=== PATIENT | male | born 1995 | race Caucasian/White ===

== ENCOUNTER 2018-05-06 13:43 | Inpatient (IN) | payer BC ==
[~2018-05-06] VITALS: Ht 180.3 cm; Wt 67.0 kg
[~2018-05-06 13:43] MED LIST: IBUP-1542 PO; OXYC-281 PO
[2018-05-06] MEDS ORDERED: ONDANSETRON (ODT) 4 MG TAB ODT STA (15:40)
[2018-05-06] MEDS ORDERED: HYDROCODONE/APAP (5/325) TAB PO ONE (16:00)
[2018-05-06] MEDS ORDERED: KETOROLAC 30 MG INJ IV STA (17:23)
[2018-05-06] MEDS ORDERED: SOD CHLORIDE 0.9% 1,000 ML IV ONE (17:30)
[2018-05-06] MEDS ORDERED: ONDANSETRON 4 MG INJ IV STA (18:21)
[2018-05-06] MEDS ORDERED: morphine 4 MG/ML VIAL IV STA (18:21)
--- NOTE | 2018-05-06 18:34 | ERD ---
ER Documentation Chief Complaint Chief Complaint Complains of severe back pain since this am HPI 22-year-old female patient with a past medical history of appendicitis, 2 years ago presents the ED complaining of left lower back pain that started this morning with some dysuria. Patient reports that he has not seen any hematuria. That he is nauseous, had a few episodes of nonbilious nonbloody vomiting. Reports that the pain radiates to the left lower abdomen. Denies any chest pain or shortness of breath, diarrhea, neck stiffness, fever, chills. ROS All systems reviewed and are negative except as per history of present illness. Medications Home Meds Active Scripts Tamsulosin Hcl* (Flomax*) 0.4 Mg Cap.er.24h, 0.4 MG PO QPM, #30 CAP Prov:BHARGAV RAVI MD 05/11/18 Ibuprofen* (Motrin*) 600 Mg Tab, 600 MG PO Q6, #20 TAB Prov:BHARGAV RAVI MD 05/11/18 Hydrocodone/Acetaminophen ([place] 5-325 Tablet) 1 Each Tablet, 1 TAB PO Q6H PRN for PAIN, #12 TAB Prov:BHARGAV RAVI MD 05/11/18 Tamsulosin Hcl* (Flomax*) 0.4 Mg Cap.er.24h, 0.4 MG PO DAILY for 5 Days, #5 CAP Prov:SONU REEVES M. 05/08/18 Docusate Sodium* (Colace*) 100 Mg Capsule, 100 MG PO BID, #10 CAP Prov:SONU REEVES M. 05/08/18 Lactobacillus Acidophilus* (Lactinex*) 1 Tab Chew, 1 TAB PO BID, #10 TAB Prov:LEANDROZAINAB MoraO M. 05/08/18 Levofloxacin* (Levaquin*) 500 Mg Tablet, 500 MG PO DAILY for 5 Days, #5 TAB Prov:SONU REEVES M. 05/08/18 Discontinued Scripts Oxycodone Hcl-Acetaminophen* (Percocet*) 5-325 Mg Tablet, 1 TAB PO Q4H PRN for S EVERE PAIN LEVEL 7-10, #8 TAB Prov:TIFFANI RODRIGUEZ MD 10/04/15 Ibuprofen* (Ibuprofen*) 600 Mg Tablet, 600 MG PO Q6 PRN for PAIN, #20 TAB Prov:TIFFANI RODRIGUEZ MD 10/04/15 Allergies Allergies: Coded Allergies: No Known Allergy (Unverified , 10/03/15) PMhx/Soc History of Surgery: No Anesthesia Reaction: No Hx Neurological Disorder: No Hx Respiratory Disorders: No Hx Cardiac Disorders: No Hx Psychiatric Problems: No Hx Miscellaneous Medical Probl: No Hx Alcohol Use: No Hx Substance Use: Yes (marijuana use ) Hx Tobacco Use: No FmHx Family History: No diabetes, No coronary disease Physical Exam Vitals Temp 97.1 Pulse 70 Resp 20 SBP 152 DBP 88 Pulse Ox 100 Physical Exam Const: Mgc-ujy-fzwgsvaup, well-nourished. In no acute distress. Head: Atraumatic, normocephalic Eyes: Normal Conjunctiva without injection. No purulent discharge. ENT: Normal external ear, nose. Moist oropharynx without tonsillar exudates. Non-erythematous pharynx. Uvula midline. No drooling. No trismus. Neck: No cervical midline tenderness. Full range of motion. No meningismus. No cervical lymphadenopathy. No JVD. Resp: Clear to auscultation bilaterally. No wheezing, rhonchi, rales, or crackles. No accessory muscle use. No retractions. Cardio: Regular rate and rhythm. No murmurs, rubs or gallops. Abd: Soft, slight left lower quadrant tenderness, non distended. Normal bowel sounds. No palpable masses. No rebound tenderness. No guarding. Negative McBurney's point. Negative psoas sign. Negative obturator sign. Skin: No petechiae or rashes Back: No midline tenderness. No CVA tenderness. Ext: No cyanosis, or edema. Neur: Awake and alert. Normal gait. Normal coordination. Psych: Normal Mood and Affect Results 24 hrs Laboratory Tests Test 05/06/18 15:53 05/06/18 15:58 Urine Color YELLOW Urine Clarity CLEAR Urine pH 7.0 Urine Specific [place] 1.020 Urine Ketones 2+ mg/dL Urine Nitrite NEGATIVE mg/dL Urine Bilirubin NEGATIVE mg/dL Urine Urobilinogen 1+ mg/dL Urine Leukocyte Esterase NEGATIVE Sav/ul Urine Microscopic RBC 147 /HPF Urine Microscopic WBC 5 /HPF Urine Mucus FEW /HPF Urine Hemoglobin 2+ mg/dL Urine Glucose NEGATIVE mg/dL Urine Total Protein NEGATIVE mg/dl White Blood Count 17.1 10^3/ul Red Blood Count 4.94 10^6/ul Hemoglobin 15.0 g/dl Hematocrit 44.3 % Mean Corpuscular Volume 89.7 fl Mean Corpuscular Hemoglobin 30.4 pg Mean Corpuscular Hemoglobin Concent 33.9 g/dl Red Cell Distribution Width 12.7 % Platelet Count 268 10^3/UL Mean Platelet Volume 10.6 fl Immature Granulocytes % 0.500 % Neutrophils % 89.6 % Lymphocytes % 3.3 % Monocytes % 6.3 % Eosinophils % 0.0 % Basophils % 0.3 % Nucleated Red Blood Cells % 0.0 /100WBC Immature Granulocytes # 0.090 10^3/ul Neutrophils # 15.3 10^3/ul Lymphocytes # 0.6 10^3/ul Monocytes # 1.1 10^3/ul Eosinophils # 0.0 10^3/ul Basophils # 0.1 10^3/ul Nucleated Red Blood Cells # 0.0 10^3/ul Sodium Level 141 mmol/L Potassium Level 4.8 mmol/L Chloride Level 102 mmol/L Carbon Dioxide Level 26 mmol/L Anion Gap 13 Blood Urea Nitrogen 15 mg/dl Creatinine 1.49 mg/dl Est Glomerular Filtrat Rate mL/min > 60 mL/min Glucose Level 126 mg/dl Calcium Level 10.5 mg/dl Total Bilirubin 0.3 mg/dl Direct Bilirubin 0.00 mg/dl Indirect Bilirubin 0.3 mg/dl Aspartate Amino Transf (AST/SGOT) 23 IU/L Alanine Aminotransferase (ALT/SGPT) 15 IU/L Alkaline Phosphatase 72 IU/L Total Protein 8.3 g/dl Albumin 5.2 g/dl Globulin 3.10 g/dl Albumin/Globulin Ratio 1.67 Lipase 25 U/L Current Medications Medications Dose Sig/Augusto Start Time Status Last (Trade) Ordered Route PRN Stop Time Admin Dose Reason Admin 1 tab ONCE ONCE 05/06/18 DC 05/06/18 Acetaminophen PO 16:00 15:53 / 05/06/18 16:01 Hydrocodone Bitart ([place] (5/325)) Ondansetron 4 mg ONCE STAT 05/06/18 DC 05/06/18 HCl (Zofran ODT 15:40 15:54 Odt) 05/06/18 15:45 Ketorolac 30 mg ONCE STAT 05/06/18 DC 05/06/18 Tromethamine IV 17:23 17:35 (Toradol) 05/06/18 17:24 Sodium 1,000 ml @ Q1H ONCE 05/06/18 DC 05/06/18 Chloride 1,000 mls/hr IV 17:30 17:35 05/06/18 18:29 Morphine 4 mg ONCE STAT 05/06/18 DC 05/06/18 Sulfate IV 18:21 18:39 (morphine) 05/06/18 18:22 Ondansetron 4 mg ONCE STAT 05/06/18 DC 05/06/18 HCl (Zofran IV 18:21 18:39 Inj) 05/06/18 18:22 Procedures/MDM 22-year-old male patient with no significant past medical history presents to the ED complaining of left lower quadrant abdominal pain and left lower back pa in. Patient is afebrile and nontoxic-appearing. Patient was further worked up with CBC, CMP, lipase, UA, CTthe abdomen and pelvis without contrast. Patient was given 30 mg IV Toradol, [place] 5-325 mg. Pending pain control with morphine 4 mg IV, this patient has been signed out to my rising physician, Dr. Welsh for further evaluation and treatment and decision of admission. Dr. Welsh spoke with Dr. Adams who agreed with the admission plan who spoke speak with hospitalist and urologist for admission plan. IMPRESSION: 1. 6 mm distal left renal calculus, adjacent to the left ureterovesicular junction, resulting in mild to moderate left-sided hydroureteronephrosis. 2. Small nonobstructive right sided intrarenal calculi measuring up to 4 mm in diameter. CBC: No leukocytosis. No e/o of systemic infection. No e/o anemia. CMP: No e/o severe acidosis, alkalosis, renal failure, diabetic ketoacidosis, liver disease Lipase within normal limits. Urine: No leukocyte esterase, no nitrites, no hematuria. Patient has a 6 mm nephrolithiasis of the left urethral vesicular junction with some mild to moderate left-sided hydroureteronephrosis. Low suspicion for septic renal stone, testicular torsion, gastritis, GERD, peptic ulcer disease, cholecystitis, choledocholithiasis, cholangitis, pancreatitis, appendicitis, bowel obstruction, ileus, volvulus, pyelonephritis, hepatitis, perforated viscus, diverticulitis, abdominal hernia, acute abdomen, mesenteric ischemia or other emergent conditions. Departure Diagnosis: Primary Impression: Nephrolithiasis Condition: Stable Referrals: [facility] YOU HAVE RECEIVED A MEDICAL SCREENING EXAM AND THE RESULTS INDICATE THAT YOU DO NOT HAVE A CONDITION THAT REQUIRES URGENT TREATMENT IN THE EMERGENCY DEPARTMENT. FURTHER EVALUATION AND TREATMENT OF YOUR CONDITION CAN WAIT UNTIL YOU ARE SEEN IN YOUR DOCTORS OFFICE WITHIN THE NEXT 1-2 DAYS. IT IS YOUR RESPONSIBILITY TO MAKE AN APPOINTMENT FOR FOLOW-UP CARE. IF YOU HAVE A PRIMARY DOCTOR --you should call your primary doctor and schedule an appointment IF YOU DO NOT HAVE A PRIMARY DOCTOR YOU CAN CALL OUR PHYSICIAN REFERRAL HOTLINE AT IF YOU CAN NOT AFFORD TO SEE A PHYSICIAN YOU CAN CHOSE FROM THE FOLLOWING [facility][1] [id number] [facility]. [facility] [address] [facility] [address] [facility] [address] [facility] [facility] [address] [facility]. [facility] [address] [facility]. [facility] YOU HAVE RECEIVED A MEDICAL SCREENING EXAM AND THE RESULTS INDICATE THAT YOU DO NOT HAVE A CONDITION THAT REQUIRES URGENT TREATMENT IN THE EMERGENCY DEPARTMENT. FURTHER EVALUATION AND TREATMENT OF YOUR CONDITION CAN WAIT UNTIL YOU ARE SEEN IN YOUR DOCTORS OFFICE WITHIN THE NEXT 1-2 DAYS. IT IS YOUR RESPONSIBILITY TO MAKE AN APPOINTMENT FOR FOLOW-UP CARE. IF YOU HAVE A PRIMARY DOCTOR --you should call your primary doctor and schedule and appointment IF YOU DO NOT HAVE A PRIMARY DOCTOR YOU CAN CALL OUR PHYSICIAN REFERRAL HOTLINE AT . IF YOU CAN NOT AFFORD TO SEE A PHYSICIAN YOU CAN CHOSE FROM THE FOLLOWING [facility]: [facility] [address] [place] [address] [facility] [address] [place] [address] [facility] [address] [place] [address] [facility] [place] HAYES PA-C May 06, 2018 18:33
--- NOTE | 2018-05-06 20:13 | QN ---
Documentation Comment I spoke with Dr. Claros who will consult on the patient. I spoke with Dr. Duenas for admission to a medical surgical bed. BRIGITTE BRONSON MD May 06, 2018 20:13
[2018-05-06] MEDS ORDERED: ONDANSETRON 4 MG INJ IV PRN ×2 (20:30→21:00)
[2018-05-06] MEDS ORDERED: ACETAMINOPHEN 325 MG TAB PO PRN ×2 (20:30→21:00)
--- NOTE | 2018-05-06 20:39 | HP ---
Date/Time of Note Date/Time of Note DATE: 05/06/18 TIME: 20:39 Assessment/Plan VTE Prophylaxis SCD applied (from Nsg): Yes Pharmacological prophylaxis: NA/contraindicated Pharm contraindication: low risk/ambulating Lines/Catheters IV Catheter Type (from Nrsg): Saline Lock Assessment/Plan Hospital Course This is a 22-year-old male being admitted to the [facility] floor for: #1 Obstructive uropathy: Secondary to left-sided 6 mm renal calculus. Patient's creatinine is 1.49. At the current time we will put the patient on Flomax, IV fluid hydration with normal saline. Pain control. We will give a dose of ceftriaxone. Urinalysis shows elevated white blood cell count however there is no nitrites or leukoesterase and he is afebrile. Patient does have an elevated white blood cell count which I do feel this reactive nonetheless we will give a dose of ceftriaxone. Will strain the urine. Urology consultation is Diomedes been placed. #2 acute kidney injury: Likely secondary to obstructive uropathy, avoid nephrotoxic agents, IV fluid hydration. Urology is already on consult. Monitor renal function. #3 DVT GI prophylaxis: SCDs, no GI prophylaxis indicated Further treatment strategy will be implemented as per the clinical course Result Diagram: 05/06/18 1558 05/06/18 1558 Results 24hrs Laboratory Tests Test 05/06/18 15:53 05/06/18 15:58 Urine Color YELLOW Urine Clarity CLEAR Urine pH 7.0 Urine Specific [place] 1.020 Urine Ketones 2+ H Urine Nitrite NEGATIVE Urine Bilirubin NEGATIVE Urine Urobilinogen 1+ H Urine Leukocyte Esterase NEGATIVE Urine Microscopic RBC 147 H Urine Microscopic WBC 5 Urine Mucus FEW A Urine Hemoglobin 2+ H Urine Glucose NEGATIVE Urine Total Protein NEGATIVE White Blood Count 17.1 H Red Blood Count 4.94 Hemoglobin 15.0 Hematocrit 44.3 Mean Corpuscular Volume 89.7 Mean Corpuscular Hemoglobin 30.4 Mean Corpuscular Hemoglobin Concent 33.9 Red Cell Distribution Width 12.7 Platelet Count 268 Mean Platelet Volume 10.6 H Immature Granulocytes % 0.500 H Neutrophils % 89.6 H Lymphocytes % 3.3 L Monocytes % 6.3 Eosinophils % 0.0 Basophils % 0.3 Nucleated Red Blood Cells % 0.0 Immature Granulocytes # 0.090 H Neutrophils # 15.3 H Lymphocytes # 0.6 L Monocytes # 1.1 H Eosinophils # 0.0 Basophils # 0.1 Nucleated Red Blood Cells # 0.0 Sodium Level 141 Potassium Level 4.8 Chloride Level 102 Carbon Dioxide Level 26 Anion Gap 13 Blood Urea Nitrogen 15 Creatinine 1.49 H Est Glomerular Filtrat Rate mL/min > 60 Glucose Level 126 Calcium Level 10.5 H Total Bilirubin 0.3 Direct Bilirubin 0.00 Indirect Bilirubin 0.3 Aspartate Amino Transf (AST/SGOT) 23 Alanine Aminotransferase (ALT/SGPT) 15 Alkaline Phosphatase 72 Total Protein 8.3 H Albumin 5.2 H Globulin 3.10 Albumin/Globulin Ratio 1.67 Lipase 25 HPI/ROS Admit Date/Time Admit Date/Time Hx of Present Illness cc: left lower back pain This is a 22-year-old male patient with a past medical history of appendicitis, 2 years ago presents the ED complaining of left lower back pain that started this morning with some dysuria. Patient reports that he has not seen any hematuria. That he is nauseous, had a few episodes of nonbilious nonbloody vomiting. Reports that the pain radiates to the left lower abdomen. Denies any chest pain or shortness of breath, diarrhea, neck stiffness, fever, chills. Upon my examination of the patient at the bedside he does have left CVA tenderness palpation. Allergies: NKDA Medications: None ROS Const: As per HPI Eyes : No pain discharge or redness or change in visual acuity ENT: No pain, sore throat, congestion, congestion, dysphagia or discharge Respiratory: No shortness of breath, cough, sputum, wheezing, or pleuritic pain Cardiovascular: No chest pain, palpitation, PND, or edema GI : no change in appetite, abdominal pain, nausea, vomiting, diarrhea, constipation, or change in the color his stool Genitourinary: As per HPI Musculoskeletal: No joint pain, back pain, neck pain, restricted range of motion in neck or joints Skin: No rash, bruising or hives Neuro: No headache, dizziness, syncope, seizure, focal weakness Endocrine: No polyuria, polydipsia, temperature intolerance Psych: No hallucination, depression, anxiety or suicidal ideation PMH/Family/Social Past Medical History Medical History: no pertinent history Medications Current Medications Ondansetron HCl (Zofran Inj) 4 mg BRIDGE ORDER PRN IV NAUSEA/VOMITING; Start 05/06/18 at 20:30; Stop 05/07/18 at 20:29 Acetaminophen (Tylenol Tab) 650 mg ER BRIDGE PRN PO .MILD PAIN 1-3 OR TEMP; Start 05/06/18 at 20:30; Stop 05/07/18 at 20:29 Coded Allergies: No Known Allergy (Unverified , 10/03/15) Past Surgical History Past Surgical Hx: appendectomy Family History Significant Family History: no pertinent family hx Social History Alcohol Use: occasionally Drug Use: marijuana Exam/Review of Systems Vital Signs Vitals Vital Signs Date Temp Pulse Resp B/P (MAP) Pulse Ox O2 O2 Flow FiO2 Time Delivery Rate 05/06/18 98.1 60 18 119/56 98 Room Air 20:10 (77) Exam Exam General: Patient is a pleasant male currently lying in bed in no acute distress- 3 lying comfortably in bed. HEENT: Atraumatic, normocephalic. The pupils are equal, round and reactive. Extraocular motor are intact Neck: Supple with full range of motion. No rigidity or meningismus Chest: Nontender Lungs: Clear to auscultation bilaterally no crackles rales or wheezing Heart: Normal S1-S2, Regular rhythm and rate. No murmur, S3, or S4 Abdomen:, Mild left CVA tenderness to palpation soft , nontender, nondistended , bowel sounds are present. No guarding no rebound tenderness , No masses or organomegaly. Extremities: Normal to inspection, no edema no cyanosis Neurologic: Normal mental status, speech normal, cranial nerves II through XII are intact, motor and sensory are intact, Additional Comments PROCEDURE: CT Abdomen and Pelvis without contrast. CLINICAL INDICATION: Abdominal pain. TECHNIQUE: CT scan of the abdomen and pelvis without contrast was performed on a multidetector high-resolution CT scanner. The patient was scanned without intravenous contrast. Coronal and sagittal reformatted images were obtained from the axial source images. Images were reviewed on a high-resolution PACS workstation. One or more of the following dose reduction techniques were used: Automated exposure control, adjustment of the mA and/or kV according to patient size, use of iterative reconstruction technique. DICOM images are available. The total exam CTDI equals 5.93 mGy and the total exam DLP equals 352.26 mGy-cm. COMPARISON: None. FINDINGS: CT abdomen: The lung bases are clear. The heart size is normal, without pericardial thickening or effusion. The liver is normal in size and density without focal mass or intrahepatic biliary dilatation. The spleen is normal in size and homogeneous in density. The stomach is grossly unremarkable. The pancreas as visualized is normal. The gallbladder and biliary tree are unremarkable and there is no evidence for biliary dilatation. The adrenal glands are symmetric and normal. There is a 6 mm obstructive calculus in the distal left ureter, adjacent to the left ureterovesicular junction resulting in mild to moderate left-sided hydroureteronephrosis. Two nonobstructive intrarenal calculi are present in the inferior pole of the right kidney measuring up to 4 mm in diameter. The aorta is of normal caliber. There is no retroperitoneal lymphadenopathy. The jj hepatis region is clear. The small bowel and mesentery, as visualized, are unremarkable. CT pelvis: The small bowel loops situated within the pelvis are unremarkable. The pelvic organs are normal. The pelvic sidewalls and inguinal regions are clear. The sigmoid colon and rectum are unremarkable. The appendix is surgically absent. No mass, lymphadenopathy, or free fluid is seen. No acute inflammation is seen. The surrounding osseous structures are unremarkable. No osteolytic or osteoblastic lesion is detected. IMPRESSION: 1. 6 mm distal left renal calculus, adjacent to the left ureterovesicular junc tion, resulting in mild to moderate left-sided hydroureteronephrosis. 2. Small nonobstructive right sided intrarenal calculi measuring up to 4 mm in diameter. RPTAT: JJ .Cody Boyer MD, Date Time Electronically viewed and signed by .Cody Boyer MD, MD on 05/06/2018 16:31 .A/ CC: OK HAYES PA-C [id number] WATSON IBARRA May 06, 2018 20:39
[2018-05-06] MEDS ORDERED: TAMSULOSIN (SR) 0.4 MG CAP PO SCH (21:00)
[2018-05-06] MEDS ORDERED: DOCUSATE SODIUM 100 MG CAP PO PRN (21:00)
[2018-05-06] MEDS ORDERED: HYDROCODONE/APAP (5/325) TAB PO PRN (21:00)
[2018-05-06] MEDS ORDERED: BISACODYL (EC) 5 MG TAB PO PRN (21:00)
[2018-05-06] MEDS ORDERED: HYDROmorphONE 0.5 MG/0.5 ML SYG IV PRN (21:00)
[2018-05-06] MEDS ORDERED: NACL 0.9% 3 ML SYG IV SCH (21:00)
[2018-05-06] MEDS: SOD CHLORIDE 0.9% 1,000 ML IV SCH (21:01)
[2018-05-06] MEDS: TAMSULOSIN (SR) 0.4 MG CAP PO SCH (21:25)
--- NOTE | 2018-05-06 21:52 | CONS ---
Assessment/Plan Assessment/Plan Hospital Course (Demo Recall) 22-year-old male presented to the emergency room with left flank pain associated with nausea and vomiting. He underwent a CT scan of the abdomen and pelvis and that showed: 1. 6 mm distal left renal calculus, adjacent to the left ureterovesicular junction, resulting in mild to moderate left-sided hydroureteronephrosis. 2. Small nonobstructive right sided intrarenal calculi measuring up to 4 mm in diameter. He denies any prior history of kidney stones. No prior urinary tract infection or sexually transmitted disease. On the exam he does have left flank tenderness and left lower quadrant tenderness. Impression: distal left ureteral stone measuring 6 mm Plan: Strain the urine, pain medications, KUB, antibiotic and Flomax Consultation Date/Type/Reason Admit Date/Time May 06, 2018 Date of Consultation: May 06, 2018 Type of Consult Urology Reason for Consultation Distal left ureteral stone Requesting Provider: WATSON IBARRA Date/Time of Note DATE: 05/06/18 TIME: 21:46 Hx of Present Illness 22-year-old male presented to the emergency room with left flank pain associated with nausea and vomiting. He underwent a CT scan of the abdomen and pelvis and that showed: 1. 6 mm distal left renal calculus, adjacent to the left ureterovesicular junction, resulting in mild to moderate left-sided hydroureteronephrosis. 2. Small nonobstructive right sided intrarenal calculi measuring up to 4 mm in diameter. He denies any prior history of kidney stones. No prior urinary tract infection or sexually transmitted disease. Constitutional: no complaints Eyes: no complaints ENT: no complaints Respiratory: no complaints Cardiovascular: no complaints Gastrointestinal: no complaints Genitourinary: flank pain (Left side) Musculoskeletal: no complaints Skin: no complaints Neurologic: no complaints Endocrine: no complaints Lymphatic: no complaints Immunologic: no complaints Past Medical History Medical History: no pertinent history Home Meds Active Scripts Oxycodone Hcl-Acetaminophen* (Percocet*) 5-325 Mg Tablet, 1 TAB PO Q4H PRN for SEVERE PAIN LEVEL 7-10, #8 TAB Prov:TIFFANI RODRIGUEZ MD 10/04/15 Ibuprofen* (Ibuprofen*) 600 Mg Tablet, 600 MG PO Q6 PRN for PAIN, #20 TAB Prov:TIFFANI RODRIGUEZ MD 10/04/15 Medications Current Medications Ondansetron HCl (Zofran Inj) 4 mg BRIDGE ORDER PRN IV NAUSEA/VOMITING; Start 05/06/18 at 20:30; Stop 05/07/18 at 20:29 Acetaminophen (Tylenol Tab) 650 mg ER BRIDGE PRN PO .MILD PAIN 1-3 OR TEMP; Start 05/06/18 at 20:30; Stop 05/07/18 at 20:29 Sodium Chloride 1,000 ml @ 125 mls/hr Q8H IV Last administered on 05/06/18at 21:01; Admin Dose 125 MLS/HR; Start 05/06/18 at 20:37 IV Flush (NS 3 ml) 3 ml PER PROTOCOL IV ; Start 05/06/18 at 21:00 Ondansetron HCl (Zofran Inj) 4 mg Q6H PRN IV NAUSEA/VOMITING; Start 05/06/18 at 21:00 Acetaminophen (Tylenol Tab) 650 mg Q6H PRN PO .PAIN 1-3 OR TEMP; Start 05/06/18 at 21:00 Acetaminophen/ Hydrocodone Bitart ([place] (5/325)) 1 tab Q6H PRN PO .MOD PAIN 4- 6; Start 05/06/18 at 21:00 Hydromorphone HCl (Dilaudid) 0.5 mg Q4H PRN IV .SEVERE PAIN 7-10; Start 05/06/18 at 21:00 Docusate Sodium (Colace) 100 mg Q12H PRN PO .CONSTIPATION; Start 05/06/18 at 21:00 Bisacodyl (Dulcolax) 5 mg DAILY PRN PO .CONSTIPATION; Start 05/06/18 at 21:00 Tamsulosin HCl (Flomax) 0.4 mg DAILY PO Last administered on 05/06/18at 21:25; Admin Dose 0.4 MG; Start 05/06/18 at 21:00 Allergies: Coded Allergies: No Known Allergy (Unverified , 10/03/15) Past Surgical History Past Surgical Hx: appendectomy Social History Alcohol Use: occasionally Smoking Status: Never smoker Drug Use: marijuana Exam/Review of Systems Exam Vitals Vital Signs Date Temp Pulse Resp B/P (MAP) Pulse Ox O2 O2 Flow FiO2 Time Delivery Rate 05/06/18 98.1 60 18 119/56 98 Room Air 20:10 (77) Constitutional: alert, oriented Psych: no complaints Head: normocephalic Eyes: nl conjunctiva ENMT: nl external ears & nose Neck: supple, non-tender Respiratory: normal air movement; No wheezing Cardiovascular: regular rate and rhythm; No jugular venous distention (JVD) Gastrointestinal: soft Genitourinary - Male: CVA tenderness (Left side) Extremities: No calf tenderness Neurological: nl mental status Skin: nl turgor Lymph: nl lymph nodes Results Result Diagram: 05/06/18 1558 05/06/18 1558 Results 24hrs Laboratory Tests Test 05/06/18 15:53 05/06/18 15:58 Urine Color YELLOW Urine Clarity CLEAR Urine pH 7.0 Urine Specific [place] 1.020 Urine Ketones 2+ H Urine Nitrite NEGATIVE Urine Bilirubin NEGATIVE Urine Urobilinogen 1+ H Urine Leukocyte Esterase NEGATIVE Urine Microscopic RBC 147 H Urine Microscopic WBC 5 Urine Mucus FEW A Urine Hemoglobin 2+ H Urine Glucose NEGATIVE Urine Total Protein NEGATIVE White Blood Count 17.1 H Red Blood Count 4.94 Hemoglobin 15.0 Hematocrit 44.3 Mean Corpuscular Volume 89.7 Mean Corpuscular Hemoglobin 30.4 Mean Corpuscular Hemoglobin Concent 33.9 Red Cell Distribution Width 12.7 Platelet Count 268 Mean Platelet Volume 10.6 H Immature Granulocytes % 0.500 H Neutrophils % 89.6 H Lymphocytes % 3.3 L Monocytes % 6.3 Eosinophils % 0.0 Basophils % 0.3 Nucleated Red Blood Cells % 0.0 Immature Granulocytes # 0.090 H Neutrophils # 15.3 H Lymphocytes # 0.6 L Monocytes # 1.1 H Eosinophils # 0.0 Basophils # 0.1 Nucleated Red Blood Cells # 0.0 Sodium Level 141 Potassium Level 4.8 Chloride Level 102 Carbon Dioxide Level 26 Anion Gap 13 Blood Urea Nitrogen 15 Creatinine 1.49 H Est Glomerular Filtrat Rate mL/min > 60 Glucose Level 126 Calcium Level 10.5 H Total Bilirubin 0.3 Direct Bilirubin 0.00 Indirect Bilirubin 0.3 Aspartate Amino Transf (AST/SGOT) 23 Alanine Aminotransferase (ALT/SGPT) 15 Alkaline Phosphatase 72 Total Protein 8.3 H Albumin 5.2 H Globulin 3.10 Albumin/Globulin Ratio 1.67 [address]ase [address] scan of the abdomen and pelvis: 1. 6 mm distal left renal calculus, adjacent to the left ureterovesicular junction, resulting in mild to moderate left-sided hydroureteronephrosis. 2. Small nonobstructive right sided intrarenal calculi measuring up to 4 mm in diameter. Medications Medication Current Medications Ondansetron HCl (Zofran Inj) 4 mg BRIDGE ORDER PRN IV NAUSEA/VOMITING; Start 05/06/18 at 20:30; Stop 05/07/18 at 20:29 Acetaminophen (Tylenol Tab) 650 mg ER BRIDGE PRN PO .MILD PAIN 1-3 OR TEMP; Start 05/06/18 at 20:30; Stop 05/07/18 at 20:29 Sodium Chloride 1,000 ml @ 125 mls/hr Q8H IV Last administered on 05/06/18at 21:01; Admin Dose 125 MLS/HR; Start 05/06/18 at 20:37 IV Flush (NS 3 ml) 3 ml PER PROTOCOL IV ; Start 05/06/18 at 21:00 Ondansetron HCl (Zofran Inj) 4 mg Q6H PRN IV NAUSEA/VOMITING; Start 05/06/18 at 21:00 Acetaminophen (Tylenol Tab) 650 mg Q6H PRN PO .PAIN 1-3 OR TEMP; Start 05/06/18 at 21:00 Acetaminophen/ Hydrocodone Bitart ([place] (5/325)) 1 tab Q6H PRN PO .MOD PAIN 4- 6; Start 05/06/18 at 21:00 Hydromorphone HCl (Dilaudid) 0.5 mg Q4H PRN IV .SEVERE PAIN 7-10; Start 05/06/18 at 21:00 Docusate Sodium (Colace) 100 mg Q12H PRN PO .CONSTIPATION; Start 05/06/18 at 21:00 Bisacodyl (Dulcolax) 5 mg DAILY PRN PO .CONSTIPATION; Start 05/06/18 at 21:00 Tamsulosin HCl (Flomax) 0.4 mg DAILY PO Last administered on 05/06/18at 21:25; Admin Dose 0.4 MG; Start 05/06/18 at 21:00 TERRY HANSON MD May 06, 2018 21:52
[2018-05-07 00:30] VITALS: BP 122/59; PULSE 69; RESP 18; Ht 180.3 cm; Wt 67.0 kg
[2018-05-07] MEDS: SOD CHLORIDE 0.9% 1,000 ML IV SCH ×3 (04:35→21:01)
[2018-05-07 07:26] VITALS: BP 121/61; PULSE 72; RESP 19
[2018-05-07] MEDS ORDERED: TAMSULOSIN (SR) 0.4 MG CAP PO SCH (09:00)
[2018-05-07] MEDS: TAMSULOSIN (SR) 0.4 MG CAP PO SCH (09:25)
[2018-05-07] MEDS ORDERED: CEFTRIAXONE 1 GM/50 ML (PMX) 50 ML IVPB ONE (09:30)
[2018-05-07 14:10] VITALS: BP 119/58; PULSE 82; RESP 18
--- NOTE | 2018-05-07 17:06 | PN ---
Date/Time of Note Date/Time of Note DATE: 05/07/18 TIME: 17:02 Assessment/Plan VTE Prophylaxis Risk score (from Ns)>0 risk: 0 SCD applied (from Ns): Yes SCD contraindicated: low risk/ambulating Pharmacological prophylaxis: NA/contraindicated Pharm contraindication: low risk/ambulating Lines/Catheters IV [facility]from [facility]): Peripheral IV Urinary Cath still in place: No Assessment/Plan Hospital Course 22-year-old male who had presented with L sided flank pain managed as follows : #1 Obstructive uropathy with NAGA -Secondary to left-sided 6 mm renal calculus. -Patient's creatinine is 1.49 and has increased to I.69. -continue flomax -urology input and recs noted -continue IVF -will get renal USS to assess hydronephrosis -repeat renal labs in am -consider nephro consult if no improvement -uric acid levels? -avoid nephrotoxins and renally dose all meds Plan of care has been discussed with patient, questions answered and patient has verbalized understanding. Result Diagram: 05/07/18 0431 05/07/18 0431 Results 24hrs Laboratory Tests Test 05/07/18 04:31 White Blood Count 12.4 #H Red Blood Count 4.25 L Hemoglobin 12.8 L Hematocrit 38.4 L Mean Corpuscular Volume 90.4 Mean Corpuscular Hemoglobin 30.1 Mean Corpuscular Hemoglobin Concent 33.3 Red Cell Distribution Width 13.0 Platelet Count 210 # Mean Platelet Volume 11.2 H Immature Granulocytes % 0.400 Neutrophils % 73.9 Lymphocytes % 12.6 L Monocytes % 12.7 Eosinophils % 0.2 Basophils % 0.2 Nucleated Red Blood Cells % 0.0 Immature Granulocytes # 0.050 H Neutrophils # 9.2 H Lymphocytes # 1.6 Monocytes # 1.6 H Eosinophils # 0.0 Basophils # 0.0 Nucleated Red Blood Cells # 0.0 Sodium Level 141 Potassium Level 3.6 Chloride Level 106 Carbon Dioxide Level 25 Anion Gap 10 Blood Urea Nitrogen 16 Creatinine 1.63 H Est Glomerular Filtrat Rate mL/min 54 L Glucose Level 85 # Calcium Level 9.1 Magnesium Level 1.7 Total Bilirubin 0.4 Direct Bilirubin 0.00 Indirect Bilirubin 0.4 Aspartate Amino Transf (AST/SGOT) 19 Alanine Aminotransferase (ALT/SGPT) 18 Alkaline Phosphatase 57 Total Protein 6.4 # Albumin 4.0 # Globulin 2.40 Albumin/Globulin Ratio 1.66 Subjective 24 Hr Interval Summary Free Text/Dictation no more pain Exam/Review of Systems Exam Vitals Vital Signs Date Temp Pulse Resp B/P (MAP) Pulse Ox O2 O2 Flow FiO2 Time Delivery Rate 05/07/18 97.8 82 18 119/58 96 14:10 (78) 05/07/18 Room Air 00:30 Intake and Output 05/06/18 05/06/18 05/07/18 1515:00 23:00 07:00 IntakeIntake Total 1300 ml OutputOutput Total 400 ml BalanceBalance 900 ml Exam General: A&O x3, answering questions appropriately HEENT: NC/ AT. PERRL. EOM intact Neck: supple CVS: S1, S2, RRR. no murmurs. no pain on chest wall palpation Lungs: CTA b/l. no wheezing or rhonchi Abd: soft, nontender, +BS Ext: moving all extremities skin: no rashes Results Results 24hrs Laboratory Tests Test 05/07/18 04:31 White Blood Count 12.4 #H Red Blood Count 4.25 L Hemoglobin 12.8 L Hematocrit 38.4 L Mean Corpuscular Volume 90.4 Mean Corpuscular Hemoglobin 30.1 Mean Corpuscular Hemoglobin Concent 33.3 Red Cell Distribution Width 13.0 Platelet Count 210 # Mean Platelet Volume 11.2 H Immature Granulocytes % 0.400 Neutrophils % 73.9 Lymphocytes % 12.6 L Monocytes % 12.7 Eosinophils % 0.2 Basophils % 0.2 Nucleated Red Blood Cells % 0.0 Immature Granulocytes # 0.050 H Neutrophils # 9.2 H Lymphocytes # 1.6 Monocytes # 1.6 H Eosinophils # 0.0 Basophils # 0.0 Nucleated Red Blood Cells # 0.0 Sodium Level 141 Potassium Level 3.6 Chloride Level 106 Carbon Dioxide Level 25 Anion Gap 10 Blood Urea Nitrogen 16 Creatinine 1.63 H Est Glomerular Filtrat Rate mL/min 54 L Glucose Level 85 # Calcium Level 9.1 Magnesium Level 1.7 Total Bilirubin 0.4 Direct Bilirubin 0.00 Indirect Bilirubin 0.4 Aspartate Amino Transf (AST/SGOT) 19 Alanine Aminotransferase (ALT/SGPT) 18 Alkaline Phosphatase 57 Total Protein 6.4 # Albumin 4.0 # Globulin 2.40 Albumin/Globulin Ratio 1.66 Medications Medication Current Medications Ondansetron HCl (Zofran Inj) 4 mg BRIDGE ORDER PRN IV NAUSEA/VOMITING; Start 05/06/18 at 20:30; Stop 05/07/18 at 20:29 Acetaminophen (Tylenol Tab) 650 mg ER BRIDGE PRN PO .MILD PAIN 1-3 OR TEMP; Start 05/06/18 at 20:30; Stop 05/07/18 at 20:29 Sodium Chloride 1,000 ml @ 125 mls/hr Q8H IV Last administered on 05/07/18at 12:55; Admin Dose 125 MLS/HR; Start 05/06/18 at 20:37 IV Flush (NS 3 ml) 3 ml PER PROTOCOL IV ; Start 05/06/18 at 21:00 Ondansetron HCl (Zofran Inj) 4 mg Q6H PRN IV NAUSEA/VOMITING; Start 05/06/18 at 21:00 Acetaminophen (Tylenol Tab) 650 mg Q6H PRN PO .PAIN 1-3 OR TEMP; Start 05/06/18 at 21:00 Acetaminophen/ Hydrocodone Bitart ([place] (5/325)) 1 tab Q6H PRN PO .MOD PAIN 4- 6; Start 05/06/18 at 21:00 Hydromorphone HCl (Dilaudid) 0.5 mg Q4H PRN IV .SEVERE PAIN 7-10; Start 05/06/18 at 21:00 Docusate Sodium (Colace) 100 mg Q12H PRN PO .CONSTIPATION; Start 05/06/18 at 21:00 Bisacodyl (Dulcolax) 5 mg DAILY PRN PO .CONSTIPATION; Start 05/06/18 at 21:00 Tamsulosin HCl (Flomax) 0.4 mg DAILY PO Last administered on 05/07/18at 09:25; Admin Dose 0.4 MG; Start 05/06/18 at 21:00 Influenza Virus Vaccine Quadrival (Fluzone) 0.5 ml ONCE ONCE IM* ; Start 05/09/18 at 10:00; Stop 05/09/18 at 10:01 SONU REEVES May 07, 2018 17:06
--- NOTE | 2018-05-07 18:00 | CONS ---
Consult Date/Type/Reason Admit Date/Time May 06, 2018 at 20:12 Initial Consult Date 05/06/18 Type of Consultation: Urology Reason for Consultation Distal left ureteral stone Requesting Provider: WATSON IBARRA Date/Time of Note DATE: 05/07/18 TIME: 17:56 Subjective Patient has been comfortable today and has not required any pain medications. He did not pass the stone yet Objective Vitals Vital Signs Date Temp Pulse Resp B/P (MAP) Pulse Ox O2 O2 Flow FiO2 Time Delivery Rate 05/07/18 97.8 82 18 119/58 96 14:10 (78) 05/07/18 Room Air 00:30 Intake and Output 05/06/18 05/06/18 05/07/18 1515:00 23:00 07:00 IntakeIntake Total 1300 ml OutputOutput Total 400 ml BalanceBalance 900 ml Exam He does have left flank and left lower quadrant tenderness Results/Medications Result Diagram: 05/07/18 0431 05/07/18 0431 Results 24 hrs Laboratory Tests Test 05/07/18 04:31 White Blood Count 12.4 #H Red Blood Count 4.25 L Hemoglobin 12.8 L Hematocrit 38.4 L Mean Corpuscular Volume 90.4 Mean Corpuscular Hemoglobin 30.1 Mean Corpuscular Hemoglobin Concent 33.3 Red Cell Distribution Width 13.0 Platelet Count 210 # Mean Platelet Volume 11.2 H Immature Granulocytes % 0.400 Neutrophils % 73.9 Lymphocytes % 12.6 L Monocytes % 12.7 Eosinophils % 0.2 Basophils % 0.2 Nucleated Red Blood Cells % 0.0 Immature Granulocytes # 0.050 H Neutrophils # 9.2 H Lymphocytes # 1.6 Monocytes # 1.6 H Eosinophils # 0.0 Basophils # 0.0 Nucleated Red Blood Cells # 0.0 Sodium Level 141 Potassium Level 3.6 Chloride Level 106 Carbon Dioxide Level 25 Anion Gap 10 Blood Urea Nitrogen 16 Creatinine 1.63 H Est Glomerular Filtrat Rate mL/min 54 L Glucose Level 85 # Calcium Level 9.1 Magnesium Level 1.7 Total Bilirubin 0.4 Direct Bilirubin 0.00 Indirect Bilirubin 0.4 Aspartate Amino Transf (AST/SGOT) 19 Alanine Aminotransferase (ALT/SGPT) 18 Alkaline Phosphatase 57 Total Protein 6.4 # Albumin 4.0 # Globulin 2.40 Albumin/Globulin Ratio 1.66 Home Meds Active Scripts Oxycodone Hcl-Acetaminophen* (Percocet*) 5-325 Mg Tablet, 1 TAB PO Q4H PRN for SEVERE PAIN LEVEL 7-10, #8 TAB Prov:TIFFANI RODRIGUEZ MD 10/04/15 Ibuprofen* (Ibuprofen*) 600 Mg Tablet, 600 MG PO Q6 PRN for PAIN, #20 TAB Prov:TIFFANI RODRIGUEZ MD 10/04/15 Medications Current Medications Ondansetron HCl (Zofran Inj) 4 mg BRIDGE ORDER PRN IV NAUSEA/VOMITING; Start 05/06/18 at 20:30; Stop 05/07/18 at 20:29 Acetaminophen (Tylenol Tab) 650 mg ER BRIDGE PRN PO .MILD PAIN 1-3 OR TEMP; Start 05/06/18 at 20:30; Stop 05/07/18 at 20:29 Sodium Chloride 1,000 ml @ 125 mls/hr Q8H IV Last administered on 05/07/18at 12:55; Admin Dose 125 MLS/HR; Start 05/06/18 at 20:37 IV Flush (NS 3 ml) 3 ml PER PROTOCOL IV ; Start 05/06/18 at 21:00 Ondansetron HCl (Zofran Inj) 4 mg Q6H PRN IV NAUSEA/VOMITING; Start 05/06/18 at 21:00 Acetaminophen (Tylenol Tab) 650 mg Q6H PRN PO .PAIN 1-3 OR TEMP; Start 05/06/18 at 21:00 Acetaminophen/ Hydrocodone Bitart ([place] (5/325)) 1 tab Q6H PRN PO .MOD PAIN 4- 6; Start 05/06/18 at 21:00 Hydromorphone HCl (Dilaudid) 0.5 mg Q4H PRN IV .SEVERE PAIN 7-10; Start 05/06/18 at 21:00 Docusate Sodium (Colace) 100 mg Q12H PRN PO .CONSTIPATION; Start 05/06/18 at 21:00 Bisacodyl (Dulcolax) 5 mg DAILY PRN PO .CONSTIPATION; Start 05/06/18 at 21:00 Tamsulosin HCl (Flomax) 0.4 mg DAILY PO Last administered on 05/07/18at 09:25; Admin Dose 0.4 MG; Start 05/06/18 at 21:00 Influenza Virus Vaccine Quadrival (Fluzone) 0.5 ml ONCE ONCE IM* ; Start 05/09/18 at 10:00; Stop 05/09/18 at 10:01 Assessment/Plan Hospital Course (Demo Recall) 22-year-old male presented to the emergency room with left flank pain associated with nausea and vomiting. He underwent a CT scan of the abdomen and pelvis and that showed: 1. 6 mm distal left renal calculus, adjacent to the left ureterovesicular junction, resulting in mild to moderate left-sided hydroureteronephrosis. 2. Small nonobstructive right sided intrarenal calculi measuring up to 4 mm in diameter. He denies any prior history of kidney stones. No prior urinary tract infection or sexually transmitted disease. Patient did not have any pain last night and all day today. On the exam he does have left flank tenderness and left lower quadrant te nderness. Impression: distal left ureteral stone measuring 6 mm Plan: Strain the urine, pain medications, KUB, antibiotic and Flomax. Continue active surveillance TERRY HANSON MD May 07, 2018 18:00
[2018-05-07 20:00] VITALS: BP 113/55; PULSE 67; RESP 18
[2018-05-08] MEDS: SOD CHLORIDE 0.9% 1,000 ML IV SCH ×2 (04:12→12:37)
--- NOTE | 2018-05-08 08:12 | CONS ---
Consult Date/Type/Reason Admit Date/Time May 06, 2018 at 20:12 Initial Consult Date 05/06/18 Type of Consultation: Urology Reason for Consultation Distal left ureteral stone Requesting Provider: WATSON IBARRA Date/Time of Note DATE: 05/08/18 TIME: 08:07 Subjective The patient is comfortable, has not had any pain and did not ask for any pain medications Objective Vitals Vital Signs Date Temp Pulse Resp B/P (MAP) Pulse Ox O2 O2 Flow FiO2 Time Delivery Rate 05/07/18 98.6 67 18 113/55 99 Room Air 20:00 (74) Intake and Output 05/07/18 05/07/18 05/08/18 1515:00 23:00 07:00 IntakeIntake Total 1450 ml 1420 ml 1375 ml OutputOutput Total 300 ml 400 ml BalanceBalance 1450 ml 1120 ml 975 ml Exam Abdomen is soft and there is no flank tenderness Results/Medications Result Diagram: 05/08/18 0441 05/08/18 0441 Results 24 hrs Laboratory Tests Test 05/08/18 04:41 White Blood Count 7.0 # Red Blood Count 4.21 L Hemoglobin 12.5 L Hematocrit 38.1 L Mean Corpuscular Volume 90.5 Mean Corpuscular Hemoglobin 29.7 Mean Corpuscular Hemoglobin Concent 32.8 Red Cell Distribution Width 13.2 Platelet Count 198 Mean Platelet Volume 10.9 H Immature Granulocytes % 0.100 Neutrophils % 63.9 Lymphocytes % 22.2 Monocytes % 12.2 Eosinophils % 0.9 Basophils % 0.7 Nucleated Red Blood Cells % 0.0 Immature Granulocytes # 0.010 Neutrophils # 4.4 Lymphocytes # 1.5 Monocytes # 0.9 Eosinophils # 0.1 Basophils # 0.1 Nucleated Red Blood Cells # 0.0 Sodium Level 144 Potassium Level 3.9 Chloride Level 107 Carbon Dioxide Level 27 Anion Gap 10 Blood Urea Nitrogen 10 Creatinine 0.93 Est Glomerular Filtrat Rate mL/min > 60 Glucose Level 86 Uric Acid 5.0 Calcium Level 8.9 Magnesium Level 1.8 Home Meds Active Scripts Oxycodone Hcl-Acetaminophen* (Percocet*) 5-325 Mg Tablet, 1 TAB PO Q4H PRN for SEVERE PAIN LEVEL 7-10, #8 TAB Prov:TIFFANI RODRIGUEZ MD 10/04/15 Ibuprofen* (Ibuprofen*) 600 Mg Tablet, 600 MG PO Q6 PRN for PAIN, #20 TAB Prov:TIFFANI RODRIGUEZ MD 10/04/15 Medications Current Medications Sodium Chloride 1,000 ml @ 125 mls/hr Q8H IV Last administered on 05/08/18at 04:12; Admin Dose 125 MLS/HR; Start 05/06/18 at 20:37 IV Flush (NS 3 ml) 3 ml PER PROTOCOL IV ; Start 05/06/18 at 21:00 Ondansetron HCl (Zofran Inj) 4 mg Q6H PRN IV NAUSEA/VOMITING; Start 05/06/18 at 21:00 Acetaminophen (Tylenol Tab) 650 mg Q6H PRN PO .PAIN 1-3 OR TEMP; Start 05/06/18 at 21:00 Acetaminophen/ Hydrocodone Bitart ([place] (5/325)) 1 tab Q6H PRN PO .MOD PAIN 4- 6; Start 05/06/18 at 21:00 Hydromorphone HCl (Dilaudid) 0.5 mg Q4H PRN IV .SEVERE PAIN 7-10; Start at 21:00 Docusate Sodium (Colace) 100 mg Q12H PRN PO .CONSTIPATION; Start 05/06/18 at 21:00 Bisacodyl (Dulcolax) 5 mg DAILY PRN PO .CONSTIPATION; Start 05/06/18 at 21:00 Tamsulosin HCl (Flomax) 0.4 mg DAILY PO Last administered on 05/07/18at 09:25; Admin Dose 0.4 MG; Start 05/06/18 at 21:00 Influenza Virus Vaccine Quadrival (Fluzone) 0.5 ml ONCE ONCE IM* ; Start 05/09/18 at 10:00; Stop 05/09/18 at 10:01 Imaging Renal ultrasound: . Mild fullness of bilateral renal collecting systems. The degree of left dilatation has improved from prior CT scan. 2. Debris noted within the bladder. 3. Bilateral ureteral jets visualized in the bladder Assessment/Plan Hospital Course (Demo Recall) 22-year-old male presented to the emergency room with left flank pain associated with nausea and vomiting. He underwent a CT scan of the abdomen and pelvis and that showed: 1. 6 mm distal left renal calculus, adjacent to the left ureterovesicular junction, resulting in mild to moderate left-sided hydroureteronephrosis. 2. Small nonobstructive right sided intrarenal calculi measuring up to 4 mm in diameter. He denies any prior history of kidney stones. No prior urinary tract infection or sexually transmitted disease. Patient did not have any pain last night, his white count is normal now and his renal function has normalized, his creatinine is down to 0.93 and a renal ultrasound did show good urine jets from both ureters. The patient may be discharged home today on oral pain medications and an antibiotic for 1 week. He should follow-up with his primary care physician and if needed refer him to the urologist. He may be referred to my office but he will need an authorization from his IPA. Should he has pain and the pain is not controlled with the oral pain medications then he should come back to the emergency room and then will reevaluate and if needed operate and remove the stone TERRY HANSON MD May 08, 2018 08:12
[2018-05-08 08:23] VITALS: BP 126/60; PULSE 60; RESP 18
[2018-05-08] MEDS: TAMSULOSIN (SR) 0.4 MG CAP PO SCH (09:10)
--- NOTE | 2018-05-08 13:21 | PDOCDIS ---
Discharge Instructions CONDITION [id number] Patient Condition: [id number] Stable HOME CARE INSTRUCTIONS: [id number] Diet Instructions: [id number] Regular ACTIVITY: [id number] Activity Restrictions: [id number] No Restrictions FOLLOW UP/APPOINTMENTS Follow-up Plan Followup with your primary doctor within the next 1-2 weeks. If you don't have one please let someone know, we can give you resources that may help you pick one. You may call Dr Jose Alejandra's office. he's accepting new patients Name, Degree: Jose Alejandra MD Specialty: Internal Medicine Comments: Office Address: [address] [place] [address] [place] [id number] Office Office You may also call your insurance company to assign one to you. Review your medication list with your nurse before leaving and if you need new prescriptions please let your nurse know. I may have made changes to your home medications or given you new prescriptions, please let your primary doctor know as well. Stay compliant with your medications and report any side effects to your PCP or pharmacist. Return to the ER if you have any concerns and cannot reach your doctors or call your insurance company, they usually have a nurse that can help you. SNOU REEVES May 08, 2018 13:21
--- NOTE | 2018-05-08 13:22 | PDOCDIS ---
Discharge Instructions CONDITION [id number] Patient Condition: [id number] Stable HOME CARE INSTRUCTIONS: [id number] Diet Instructions: [id number] Regular ACTIVITY: [id number] Activity Restrictions: [id number] No Restrictions FOLLOW UP/APPOINTMENTS Follow-up Plan Followup with your primary doctor within the next 1-2 weeks. If you don't have one please let someone know, we can give you resources that may help you pick one. You may call Dr Jose Alejandra's office. he's accepting new patients Name, Degree: Jose Alejandra MD Specialty: Internal Medicine Comments: Office Address: [address] [place] [address] [place] [id number] Office Office You may also call your insurance company to assign one to you. Review your medication list with your nurse before leaving and if you need new prescriptions please let your nurse know. I may have made changes to your home medications or given you new prescriptions, please let your primary doctor know as well. Stay compliant with your medications and report any side effects to your PCP or pharmacist. Return to the ER if you have any concerns and cannot reach your doctors or call your insurance company, they usually have a nurse that can help you. OTHER ORDERS: Other Orders: Stay hydrated at all times!!! SONU REEVES May 08, 2018 13:22
--- NOTE | 2018-05-08 13:23 | DS ---
Date/Time of Note Date/Time of Note DATE: 05/08/18 TIME: 13:23 Discharge Summary Admission/Discharge Info Admit Date/Time May 06, 2018 at 20:12 Discharge Date/Time Hospital Course 22-year-old male presented to the emergency room with left flank pain associated with nausea and vomiting. He underwent a CT scan of the abdomen and pelvis and that showed: 1. 6 mm distal left renal calculus, adjacent to the left ureterovesicular junction, resulting in mild to moderate left-sided hydroureteronephrosis. 2. Small nonobstructive right sided intrarenal calculi measuring up to 4 mm in diameter. He denies any prior history of kidney stones. No prior urinary tract infection or sexually transmitted disease. Patient did not have any pain last night, his white count is normal now and his renal function has normalized, his creatinine is down to 0.93 and a renal ultrasound did show good urine jets from both ureters. The patient may be discharged home today on oral pain medications and an antibiotic for 1 week. He should follow-up with his primary care physician and if needed refer him to the urologist. He may be referred to my office but he will need an authorization from his IPA. Should he has pain and the pain is not controlled with the oral pain medications then he should come back to the emergency room and then will reevaluate and if needed operate and remove the stone. Home Meds Active Scripts Oxycodone Hcl-Acetaminophen* (Percocet*) 5-325 Mg Tablet, 1 TAB PO Q4H PRN for SEVERE PAIN LEVEL 7-10, #8 TAB Prov:TIFFANI RODRIGUEZ MD 10/04/15 Ibuprofen* (Ibuprofen*) 600 Mg Tablet, 600 MG PO Q6 PRN for PAIN, #20 TAB Prov:TIFFANI RODRIGUEZ MD 10/04/15 Follow-up Plan Followup with your primary doctor within the next 1-2 weeks. If you don't have one please let someone know, we can give you resources that may help you pick one. You may call Dr Jose Alejandra's office. he's accepting new patients Name, Degree: Jose Alejandra MD Specialty: Internal Medicine Comments: Office Address: [address] [place] [address] Office Office You may also call your insurance company to assign one to you. Review your medication list with your nurse before leaving and if you need new prescriptions please let your nurse know. I may have made changes to your home medications or given you new prescriptions, please let your primary doctor know as well. Stay compliant with your medications and report any side effects to your PCP or pharmacist. Return to the ER if you have any concerns and cannot reach your doctors or call your insurance company, they usually have a nurse that can help you. Primary Care Provider Not On Staff Doctor Pending Labs Laboratory Tests Test 05/08/18 04:41 White Blood Count 7.0 10^3/ul (4.8-10.8) Red Blood Count 4.21 10^6/ul (4.70-6.10) Hemoglobin 12.5 g/dl (14.0-18.0) Hematocrit 38.1 % (42.0-52.0) Mean Corpuscular Volume 90.5 fl (72.0-104.0) Mean Corpuscular Hemoglobin 29.7 pg (29.0-33.0) Mean Corpuscular Hemoglobin Concent 32.8 g/dl (32.0-37.0) Red Cell Distribution Width 13.2 % (11.5-14.5) Platelet Count 198 10^3/UL (140-415) Mean Platelet Volume 10.9 fl (7.4-10.4) Immature Granulocytes % 0.100 % (0.001-0.429) Neutrophils % 63.9 % (30.0-74.0) Lymphocytes % 22.2 % (18.0-55.0) Monocytes % 12.2 % (0.0-13.0) Eosinophils % 0.9 % (0.0-7.0) Basophils % 0.7 % (0.0-2.0) Nucleated Red Blood Cells % 0.0 /100WBC (0.0-0.0) Immature Granulocytes # 0.010 10^3/ul (0.0-0.031) Neutrophils # 4.4 10^3/ul (1.6-7.5) Lymphocytes # 1.5 10^3/ul (0.8-2.9) Monocytes # 0.9 10^3/ul (0.3-0.9) Eosinophils # 0.1 10^3/ul (0.0-0.5) Basophils # 0.1 10^3/ul (0.0-0.1) Nucleated Red Blood Cells # 0.0 10^3/ul (0.0-0.0) Sodium Level 144 mmol/L (135-144) Potassium Level 3.9 mmol/L (3.5-5.1) Chloride Level 107 mmol/L (97-110) Carbon Dioxide Level 27 mmol/L (21-31) Anion Gap 10 (5-13) Blood Urea Nitrogen 10 mg/dl (7-20) Creatinine 0.93 mg/dl (0.61-1.24) Est Glomerular Filtrat Rate mL/min > 60 mL/min (>60) Glucose Level 86 mg/dl (70-220) Uric Acid 5.0 mg/dl (3.1-7.9) Calcium Level 8.9 mg/dl (8.4-10.2) Magnesium Level 1.8 mg/dl (1.7-2.5) SONU REEVES May 08, 2018 13:23
[2018-05-08] MEDS ORDERED: LACTINEX PO (13:24)
[2018-05-08] MEDS ORDERED: LEVO500T48 PO (13:24)
[2018-05-08] MEDS ORDERED: DOCU-144 PO (13:24)
[2018-05-08] MEDS ORDERED: TAMS-14 PO (13:54)
[2018-05-08 13:55] VITALS: BP 136/71; PULSE 63; RESP 18
[2018-05-09] MEDS ORDERED: INFLUENZA VIRUS VACCINE 0.5 ML (DISPENSING) IM* ONE (10:00)
== END 2018-05-08 15:30 | disposition home or self-care (01) | DRG 694 ==
LOC: FTE 13:43 → MS1 20:12 → EDBEDREQ 21:14
PROVIDERS: ADMIT Family Medicine; ATTEND Family Medicine
DX: N13.2 Hydronephrosis with renal and ureteral calculous obstruction (principal); N17.9 Acute kidney failure, unspecified
CPT/HCPCS: 74018; 74176; 76775; 80048; 80053; 81001; 83690; 83735; 84560; 85025; 87086; J0696; J1885; J2270; J2405; J7030

== ENCOUNTER 2018-05-11 10:46 | Emergency (ER) | payer BC ==
[~2018-05-11] VITALS: Ht 180.3 cm; Wt 68.5 kg
[~2018-05-11 10:46] MED LIST changes: +DOCU-144 PO; -IBUP-1542 PO; +LACTINEX PO; +LEVO500T48 PO; -OXYC-281 PO; +TAMS-14 PO
[2018-05-11 11:13] VITALS: Ht 180.3 cm; Wt 68.5 kg
[2018-05-11] MEDS ORDERED: SOD CHLORIDE 0.9% 1,000 ML IV STA (13:10)
[2018-05-11] MEDS ORDERED: KETOROLAC 30 MG INJ IV STA (13:10)
[2018-05-11] MEDS ORDERED: ONDANSETRON 4 MG INJ IV STA (13:10)
[2018-05-11] MEDS ORDERED: IBUP-1542 PO (14:15)
[2018-05-11] MEDS ORDERED: HYDR-4011 PO (14:15)
[2018-05-11] MEDS ORDERED: TAMS-14 PO (14:15)
--- NOTE | 2018-05-11 14:20 | ERD ---
ER Documentation Chief Complaint Chief Complaint needs rx for pain medication, was dx kidney stones "no pain medication give HPI 22-year-old male presents with left flank pain rating to the left abdomen. He was discharged 3 days ago for a kidney stone with hydronephrosis and elevated creatinine. He was discharged home after his creatinine improved with IV fluids, and he had resolution of pain. Patient had return of pain over the last day. He has no complaints of fevers, vomiting, hematuria. Patient has not yet seen his primary doctor to presumably get an authorization for urology visit. ROS All systems reviewed and are negative except as per history of present illness. Medications Home Meds Active Scripts Tamsulosin Hcl* (Flomax*) 0.4 Mg Cap.er.24h, 0.4 MG PO QPM, #30 CAP Prov:BHARGAV RAVI MD 05/11/18 Ibuprofen* (Motrin*) 600 Mg Tab, 600 MG PO Q6, #20 TAB Prov:BHARGAV RAVI MD 05/11/18 Hydrocodone/Acetaminophen ([place] 5-325 Tablet) 1 Each Tablet, 1 TAB PO Q6H PRN for PAIN, #12 TAB Prov:BHARGAV RAVI MD 05/11/18 Tamsulosin Hcl* (Flomax*) 0.4 Mg Cap.er.24h, 0.4 MG PO DAILY for 5 Days, #5 CAP Prov:SONU REEVES. 05/08/18 Docusate Sodium* (Colace*) 100 Mg Capsule, 100 MG PO BID, #10 CAP Prov:SONU REEVES. 05/08/18 Lactobacillus Acidophilus* (Lactinex*) 1 Tab Chew, 1 TAB PO BID, #10 TAB Prov:LEANDROZAINAB MoraO M. 05/08/18 Levofloxacin* (Levaquin*) 500 Mg Tablet, 500 MG PO DAILY for 5 Days, #5 TAB Prov:SONU REEVES. 05/08/18 Discontinued Scripts Oxycodone Hcl-Acetaminophen* (Percocet*) 5-325 Mg Tablet, 1 TAB PO Q4H PRN for SEVERE PAIN LEVEL 7-10, #8 TAB Prov:TIFFANI RODRIGUEZ MD 10/04/15 Ibuprofen* (Ibuprofen*) 600 Mg Tablet, 600 MG PO Q6 PRN for PAIN, #20 TAB Prov:TIFFANI RODRIGUEZ MD 10/04/15 Allergies Allergies: Coded Allergies: No Known Allergy (Unverified , 10/03/15) PMhx/Soc History of Surgery: Yes (Appendectomy 2 YEARS AGO) Anesthesia Reaction: No Hx Neurological Disorder: No Hx Respiratory Disorders: No Hx Cardiac Disorders: No Hx Psychiatric Problems: No Hx Miscellaneous Medical Probl: Yes (kidney stones) Hx Alcohol Use: No Hx Substance Use: Yes (MARIJUANA) Hx Tobacco Use: No Smoking Status: Never smoker FmHx Family History: No diabetes, No coronary disease, No other Physical Exam Vitals Vital Signs Date Temp Pulse Resp B/P (MAP) Pulse Ox O2 O2 Flow FiO2 Time Delivery Rate 05/11/18 98.0 83 18 137/87 100 11:13 (104) Physical Exam Const: No acute distress Head: Atraumatic Eyes: Normal Conjunctiva ENT: Normal External Ears, Nose and Mouth. Neck: Full range of motion. No meningismus. Resp: Clear to auscultation bilaterally Cardio: Regular rate and rhythm, no murmurs Abd: Soft, non tender, non distended. Normal bowel sounds Skin: No petechiae or rashes Back: No midline tenderness. Minimal left CVA tenderness left mid abdominal tenderness. No tenderness McBurney's point no Gaytan sign. Ext: No cyanosis, or edema Neur: Awake and alert Psych: Normal Mood and Affect Result Diagram: 05/11/18 1325 05/11/18 1325 Results 24 hrs Laboratory Tests Test 05/11/18 13:25 White Blood Count 10.3 10^3/ul Red Blood Count 5.03 10^6/ul Hemoglobin 15.2 g/dl Hematocrit 45.6 % Mean Corpuscular Volume 90.7 fl Mean Corpuscular Hemoglobin 30.2 pg Mean Corpuscular Hemoglobin Concent 33.3 g/dl Red Cell Distribution Width 12.6 % Platelet Count 287 10^3/UL Mean Platelet Volume 10.7 fl Immature Granulocytes % 0.500 % Neutrophils % 65.5 % Lymphocytes % 21.3 % Monocytes % 10.8 % Eosinophils % 1.3 % Basophils % 0.6 % Nucleated Red Blood Cells % 0.0 /100WBC Immature Granulocytes # 0.050 10^3/ul Neutrophils # 6.7 10^3/ul Lymphocytes # 2.2 10^3/ul Monocytes # 1.1 10^3/ul Eosinophils # 0.1 10^3/ul Basophils # 0.1 10^3/ul Nucleated Red Blood Cells # 0.0 10^3/ul Urine Color YELLOW Urine Clarity CLEAR Urine pH 6.0 Urine Specific [place] 1.016 Urine Ketones NEGATIVE mg/dL Urine Nitrite NEGATIVE mg/dL Urine Bilirubin NEGATIVE mg/dL Urine Urobilinogen 1+ mg/dL Urine Leukocyte Esterase NEGATIVE Sav/ul Urine Microscopic RBC 24 /HPF Urine Microscopic WBC 2 /HPF Urine Hemoglobin 2+ mg/dL Urine Glucose NEGATIVE mg/dL Urine Total Protein NEGATIVE mg/dl Sodium Level 144 mmol/L Potassium Level 3.6 mmol/L Chloride Level 98 mmol/L Carbon Dioxide Level 31 mmol/L Anion Gap 15 Blood Urea Nitrogen 12 mg/dl Creatinine 1.19 mg/dl Est Glomerular Filtrat Rate mL/min > 60 mL/min Glucose Level 56 mg/dl Calcium Level 10.0 mg/dl Current Medications Medications Dose Sig/Augusto Start Time Status Last (Trade) Ordered Route PRN Stop Time Admin Dose Reason Admin Sodium 1,000 ml @ Q1H STAT 05/11/18 DC 05/11/18 Chloride 1,000 mls/hr IV 13:10 13:29 05/11/18 14:09 Ondansetron 4 mg ONCE STAT 05/11/18 DC 05/11/18 HCl (Zofran IV 13:10 13:30 Inj) 05/11/18 13:12 Ketorolac 30 mg ONCE STAT 05/11/18 DC 05/11/18 Tromethamine IV 13:10 13:30 (Toradol) 05/11/18 13:12 Procedures/MDM Patient presents with current signs and symptoms of left renal colic. Limited renal ultrasound shows mild left hydronephrosis. There is hemoglobin and urine without signs of infection. Creatinine is normal today. Mild hyperglycemia on BMP. Patient was given Toradol 30 mg IV, 1 L normal saline IV and was stable throughout the ER course. Patient presents with signs and symptoms of recurrent left renal colic with normal renal function. He is well-appearing. Discharged home with continuation of instructions for outpatient urology follow-up. We will give a short course of [place], Flomax, and ibuprofen with instructions for continuation of generous fluids. He is advised to return for fevers, vomiting, worsening pain otherwise with primary doctor and urology as directed. The patient was stable with no new complaints during the ER course. Clinically, there is no current evidence to suggest meningitis, sepsis, acute abdomen, pneumonia, stroke, acute coronary syndrome, pulmonary embolism, aortic dissection or any other emergent condition appearing to require further evaluation or hospitalization. Patient counseled regarding my diagnostic impression and care plan. Prior to discharge all questions answered. Pt agrees with treatment plan and understands strict return precautions. Pt is instructed to follow up with primary care provider within 24-48 hours. Precautionary instructions provided including instructions to return to the ER if not improving or for any worsening or changing symptoms or concerns. Departure Diagnosis: Primary Impression: Kidney stone Condition: Stable Patient Instructions: Kidney Stone W/ Colic Referrals: TERRY HANSON MD Additional Instructions: Kidney function still normal. See urologist as instructed. Recheck for fevers, vomiting, new symptoms. Drink plenty of fluids at home. Likely need authorization from primary doctor for urology visit. BHARGAV RAVI MD May 11, 2018 14:20
[2018-05-11 14:37] VITALS: BP 134/77; PULSE 85; RESP 14
== END 2018-05-11 14:38 | disposition home or self-care (01) ==
LOC: FTE 10:46
DX: N20.0 Calculus of kidney (principal)
CPT/HCPCS: 36415; 76775; 80048; 81001; 85025; 96361; 96374; 96375; 99285; J1885; J2405; J7030

== ENCOUNTER 2018-12-18 13:11 | Emergency (ER) | payer BC ==
[~2018-12-18] VITALS: Ht 182.9 cm; Wt 64.5 kg
[~2018-12-18 13:11] MED LIST changes: +HYDR-4011 PO; +IBUP-1542 PO
[2018-12-18 13:25] VITALS: BP 140/87; PULSE 77; RESP 16; Ht 182.9 cm; Wt 64.5 kg
[2018-12-18] MEDS ORDERED: KETOROLAC 30 MG INJ IV STA (16:01)
[2018-12-18] MEDS ORDERED: SOD CHLORIDE 0.9% 1,000 ML IV ONE (16:30)
== END 2018-12-18 17:07 | disposition home or self-care (01) ==
LOC: FTE 13:11
DX: K80.20 Calculus of gallbladder without cholecystitis without obstruction (principal); Z21 Asymptomatic human immunodeficiency virus [HIV] infection status
CPT/HCPCS: 36415; 76705; 80053; 81003; 83690; 85025; 96361; 96374; 99285; J1885; J7030